=== PATIENT | male | born 1980 | race Caucasian/White ===

== ENCOUNTER 2023-10-15 18:04 | Emergency (ER) | payer OTHER ==
[~2023-10-15] VITALS: Ht 188 cm; Wt 106.7 kg
[2023-10-15 19:38] VITALS: BP 136/93
== END 2023-10-15 19:37 | disposition home or self-care (01) ==
LOC: ED 18:04
DX: M25.562 Pain in left knee (principal); M25.561 Pain in right knee; Z91.81 History of falling; Z91.013 Allergy to seafood
CPT/HCPCS: 73560; 99283-25

== ENCOUNTER 2023-12-22 09:50 | Day surgery (SDC) | payer OTHER ==
--- NOTE | 2023-12-17 12:21 | NUR ---
PHONE CALL FOR MPHONE PRE-ADMIT NO ANSWER LEFT MESSAGE.
[~2023-12-22] VITALS: Ht 188 cm; Wt 102.3 kg
[~2023-12-22 09:50] MED LIST: CEFAZOLIN SODIUM 2 GM/20 ML SYR IV SCH; IBLOOD GLUCOSE TEST STRIP 1 EA TEST VI PRN; KETOROLAC TROMETHAMINE 30 MG/ML VIAL ONE; LACTATED RINGER'S 1,000 ML IV SCH; LIDOCAINE HCL 1% 5 ML SDV INJ ONE; MELOXICAM15 MG PO; Ropivacaine HCl 0.5% 30 ML VIAL ONE; TRIAMCINOLONE ACET 40 MG/ML VIAL 1 ML ONE
[2023-12-22 10:09] VITALS: BP 153/91
[2023-12-22] MEDS ORDERED: propofoL 200 MG/20 ML VIAL ONE (10:21)
[2023-12-22] MEDS ORDERED: MIDAZOLAM HCL 2 MG/2 ML VIAL ONE (10:21)
[2023-12-22] MEDS ORDERED: LIDOCAINE HCL 2% 5 ML SDV ONE (10:21)
[2023-12-22] MEDS ORDERED: ondansetron HCL 4 MG/2 ML VIAL ONE (10:21)
[2023-12-22] MEDS ORDERED: ACETAMINOPHEN 1,000 MG/100 ML VIAL ONE (10:21)
[2023-12-22] MEDS ORDERED: KETOROLAC TROMETHAMINE 30 MG/ML VIAL ONE (10:21)
[2023-12-22] MEDS ORDERED: fentaNYL citrate 100 MCG/2 ML VIAL ONE (10:21)
[2023-12-22] MEDS ORDERED: DEXAMETHASONE SOD PHOS 4 MG/ML VIAL ONE (10:22)
[2023-12-22] MEDS ORDERED: PROCHLORPERAZINE EDISYLATE 10 MG/2 ML VIAL IV PRN (10:45)
[2023-12-22] MEDS ORDERED: fentaNYL citrate 50 MCG/ML SDV IV PRN (10:45)
[2023-12-22] MEDS ORDERED: IBLOOD GLUCOSE TEST STRIP 1 EA TEST VI PRN (10:45)
[2023-12-22] MEDS ORDERED: droPERidol 5 MG/2 ML VIAL IV PRN (10:45)
[2023-12-22] MEDS ORDERED: NALOXONE HCL 0.4 MG SYR IV PRN ×2 (10:45→11:00)
[2023-12-22] MEDS ORDERED: HYDROmorphone HCL 1 MG/ML SYR IV PRN (10:45)
[2023-12-22] MEDS ORDERED: ondansetron HCL 4 MG/2 ML VIAL IV PRN (10:45)
[2023-12-22] MEDS ORDERED: KETOROLAC TROMETHAMINE 15 MG/ML VIAL IV PRN (11:00)
[2023-12-22] MEDS ORDERED: HYDROCODONE/ACETA 5/325 TAB PO PRN (11:00)
[2023-12-22] MEDS ORDERED: HYDROCODON-ACE1 EA10 PO (11:01)
[2023-12-22] MEDS ORDERED: CELECOXIB200 MG PO (11:01)
--- NOTE | 2023-12-22 11:16 | NUR ---
12/22/23 Ronnie6 Nara Berumen 1104- PT ARRIVES TO PACU NONAROUSABLE TO STIMULI WITH AN OPA IN PLACE. RESP EVEN AND UNLABORED. OXYGEN SAT HIGH 90'S TO 100% ON 8L VIA MASK. PT'S RIGHT LEG ELEVATED ON A PILLOW AND ICE PACK APPLIED. 1107- PT OBSTRUCTING. PT'S HEAD REPOSITIONED TO MAINTAIN PATENT AIRWAY. 1115- PT REMAINS NONAROUSABLE TO STIMULI WITH AN OPA IN PLACE. RESP EVEN AND UNLABORED. OXYGEN SAT 100% ON 8L VIA MASK. OXYGEN TITRATED DOWN TO 6L VIA MASK.
[2023-12-22 11:38] VITALS: BP 132/80
--- NOTE | 2023-12-22 13:21 | NUR ---
LE 1135 PATIENT ALERT AND ORIENTED. BREATHING EQUAL AND UNLABORED. OXYGEN SATURATIONS ABOVE 90% ON ROOM AIR. PATIENT DENIES PAIN OR BEING NAUSEATED. SURGICAL SITE CLEAN, DRY AND INTACT. IVF INFUSING. SCD'S ON. WATER GIVEN. CRACKERS GIVEN. LE 1235 PATIENT ALERT AND ORIENTED. VOIDED 200 MLS OF CLEAR AND YELLOW URINE. BREATHING EQUAL AND UNLABORED. OXYGEN SATURATIONS ABOVE 90% ON ROOM AIR. PATIENT DENIES PAIN OR BEING NAUSEATED. SURGICAL SITE CLEAN, DRY AND INTACT. IVF INFUSING. SCD'S ON. PATIENT HAS MET DISCHARGE CRITERIA. PATIENT IV D/C'D WNL. PATIENT AMBULATED OUT WITH STEADY GAIT. NO FUTHER NEEDS. NO QUESTIONS AT THIS TIME.
--- NOTE | 2023-12-22 13:26 | OR ---
[facility] [address], [place] [address] Signed DATE OF OPERATION: 12/22/2023 SURGEON: Khari Gil MD PREOPERATIVE DIAGNOSES: 1. Medial and lateral meniscus tears, right knee. 2. Degenerative joint disease, left knee. POSTOPERATIVE DIAGNOSES: 1. Medial and lateral meniscus tears, right knee. 2. Degenerative joint disease, left knee. PROCEDURES PERFORMED: 1. Right knee arthroscopy with partial medial and lateral meniscectomies. 2. Injection, left knee. ENROLLMENT SERVICES VICE PRESIDENT: Alexia Edouard PA-C. Alexia was present and critical for all portions of procedure. ANESTHESIA: General. BLOOD LOSS: Minimal. TOURNIQUET TIME: Zero. BRIEF HISTORY: Ernesto is a 43-year-old gentleman with pain locking in his right knee and pain in his left knee. Risks and benefits of operative treatment were discussed with him. He elected to proceed. Once consent was obtained, he was taken to the operating room. After adequate anesthesia, he was placed on operating room table. Left leg was prepped with alcohol and injected with 2 mL Kenalog, 42 mL ropivacaine. It was then placed in a well-padded leg herman in a flexed abducted position. The right knee was placed in well-padded leg herman with no tourniquet. The leg was then prepped and draped in a standard sterile fashion. The portal sites were then injected with 0.25% Marcaine with epinephrine as was the knee itself. The standard inferolateral and superolateral portals were made. The scope was introduced in the knee. Electronically Signed By: KHARI GIL MD 12/22/23 1326 PATIENT NAME: ERNESTO ALMAZAN OPERATIVE REPORT DATE OF : 76 REPORT #: [id number] PHYSICIAN: KHARI GIL MD PCP: OTHER PCP REPORT IS CONFIDENTIAL AND NOT TO BE RELEASED WITHOUT AUTHORIZATION [facility] [address], [place] [address] Signed ARTHROSCOPIC FINDINGS: The patellofemoral joint was intact. Medial lateral gutters were intact. ACL and PCL were intact. 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 The large complex tear posteriorly. The lateral compartment showed a tear in the mid to anterior lateral aspect of the meniscus. The lateral compartment showed grade 1 chondromalacia. DESCRIPTION OF OPERATION: Standard inferomedial portal was made after localization using a spinal needle. The straight and curved biters were then used to trim both meniscus tears back to a stable rim. Once this was accomplished, the shaver was used to smooth both menisci. Debris was then evacuated. The portals with the arthroscopic were removed. Portals were closed with 3-0 nylon and the knee was injected with 60 mg Toradol. The wound was then dressed with Adaptic, ABD, and Hany wrap. He tolerated the procedure well. All sponge, needle, and instrument counts were correct. Khari Gil MD BA/KIERAL /[id number] Copies: ~ Electronically Signed By: KHARI GIL MD 12/22/23 1326 PATIENT NAME: ERNESTO ALMAZAN DONTA OPERATIVE REPORT DATE OF : 76 REPORT #: [id number] PHYSICIAN: KHARI GIL MD PCP: OTHER PCP REPORT IS CONFIDENTIAL AND NOT TO BE RELEASED WITHOUT AUTHORIZATION
[2023-12-22] MEDS ORDERED: CELECOXIB 200 MG CAP PO SCH (17:00)
== END 2023-12-22 12:35 | disposition home or self-care (01) ==
LOC: DS 09:50
PROVIDERS: ATTEND Specialist
PROC: 0SBC4ZZ Excision of Right Knee Joint, Percutaneous Endoscopic Approach (ICD-10-PCS; principal; 2023-12-22 11:45)
PROC: 0SBC4ZZ Excision of Right Knee Joint, Percutaneous Endoscopic Approach (ICD-10-PCS; 2023-12-22 11:45)
DX: S83.271A Complex tear of lateral meniscus, current injury, right knee, initial encounter (principal); S83.231A Complex tear of medial meniscus, current injury, right knee, initial encounter; M17.12 Unilateral primary osteoarthritis, left knee; M94.261 Chondromalacia, right knee; X58.XXXA Exposure to other specified factors, initial encounter
CPT/HCPCS: 01400; J0131; J0690; J1100; J1885; J2001; J2250; J2405; J2704; J2795; J3010; J3301; J7121